=== PATIENT | female | born 1945 | race Caucasian/White ===

== ENCOUNTER 2019-11-14 14:54 | Inpatient (IN) | payer MEDICARE ==
[~2019-11-14] VITALS: Ht 154.9 cm; Wt 78.5 kg
[2019-11-14] MEDS ORDERED: ACETAMINOPHEN 325MG TABLET PO STA (15:37)
[2019-11-14 16:24] LABS: BASOPHILS % 0.6 % (0.0-2.0); HEMATOCRIT. 35.7 % (36.0-48.0); HEMOGLOBIN. 11.8 g/dL (12.0-16.0); LYMPHOCYTES % 12.9 % (20.0-50.0); MEAN CORPUSCULAR HEMOGLOBIN 29.7 pg (28.0-32.0); MEAN CORPUSCULAR VOLUME 90.1 fL (81.0-99.0); MEAN PLATELET VOLUME 8.4 fl (7.4-10.4); MONOCYTES % 6.5 % (2.0-8.0); PLATELET 272 x1000/uL (130-400); RED BLOOD CELL COUNT 3.96 mill/uL (4.2-5.4); RED CELL DISTRIBUTION WIDTH 13.9 % (11.6-14.6)
[2019-11-14 17:11] LABS: CHLORIDE 105 mEq/L (98-107)
[2019-11-14 17:14] LABS: ETHANOL BLOOD < 10 mg/dL
[2019-11-14 18:14] LABS: CLARITY URINE CLOUDY (CLEAR); COLOR URINE YELLOW (YELLOW); KETONES URINE TRACE (NEGATIVE); LEUKOCYTE ESTERASE URINE NEGATIVE (NEGATIVE); NITRITE URINE NEGATIVE (NEGATIVE); OCCULT BLOOD URINE NEGATIVE (NEGATIVE); PROTEIN URINE TRACE (NEGATIVE); SPECIFIC GRAVITY URINE 1.019 (1.005-1.030); UROBILINOGEN URINE 0.2 E.U./dL (0.2-1.0)
[2019-11-14] MEDS ORDERED: SODIUM CHLORIDE 0.9% 1,000 ML IV ONE (18:15)
[2019-11-14] MEDS ORDERED: ACETAMINOPHEN 325MG TABLET PO PRN ×2 (19:15→23:30)
[2019-11-14 22:40] VITALS: BP 179/71
[2019-11-14 22:41] VITALS: BP 179/71
[2019-11-14 23:15] VITALS: BP 120/65
[2019-11-14] MEDS ORDERED: METF-414 MT (23:20)
[2019-11-14] MEDS ORDERED: DEXTROSE 50% WATER 50ML SYRINGE IV PRN (23:30)
[2019-11-14] MEDS ORDERED: HYDRALAZINE 20MG/ML VIAL IV PRN (23:30)
[2019-11-14] MEDS ORDERED: HYDROCODONE/ACETAMINOPHEN 5/325MG TABLET PO PRN (23:30)
[2019-11-14 23:49] VITALS: BP 179/71
[2019-11-15] MEDS: BLOOD SUGAR DIAGNOSTIC STRIP TEST SCH ×5 (00:31→20:33)
[2019-11-15] MEDS ORDERED: ATOR10TA69 MT (00:34)
[2019-11-15 04:00] VITALS: BP 120/48
[2019-11-15] MEDS: INSULIN LISPRO 100 UNITS/ML SUBCUT SCH ×5 (06:24→20:39)
[2019-11-15 07:20] LABS: BASOPHILS % 0.9 % (0.0-2.0); EOSINOPHILS % 9.7 % (0.0-5.0); HEMATOCRIT. 31.7 % (36.0-48.0); HEMOGLOBIN. 10.6 g/dL (12.0-16.0); LYMPHOCYTES % 22.8 % (20.0-50.0); MEAN CORPUSCULAR HEMOGLOBIN 29.6 pg (28.0-32.0); MEAN CORPUSCULAR VOLUME 88.9 fL (81.0-99.0); MEAN PLATELET VOLUME 8.6 fl (7.4-10.4); MONOCYTES % 10.6 % (2.0-8.0); PLATELET 227 x1000/uL (130-400); RED BLOOD CELL COUNT 3.57 mill/uL (4.2-5.4); RED CELL DISTRIBUTION WIDTH 14.2 % (11.6-14.6)
[2019-11-15 08:00] VITALS: BP 140/63
[2019-11-15 12:00] VITALS: BP_SYST 107; BP_SYST 125; BP_DIAS 39; BP_DIAS 52
[2019-11-15 12:19] VITALS: BP 114/33
[2019-11-15 16:00] VITALS: BP 137/55
[2019-11-15 16:54] LABS: HEMATOCRIT 33.4 % (36.0-48.0); MEAN CORPUSCULAR HEMOGLOBIN 29.5 pg (28.0-32.0); MEAN CORPUSCULAR VOLUME 89.4 fL (81.0-99.0); PLATELET 252 x1000/uL (130-400); RED BLOOD CELL COUNT 3.73 mill/uL (4.2-5.4); RED CELL DISTRIBUTION WIDTH 14.1 % (11.6-14.6)
[2019-11-15 20:00] VITALS: BP_SYST 120; BP_SYST 124; BP_DIAS 38; BP_DIAS 52; BP_DIAS 57
[2019-11-15] MEDS ORDERED: ATORVASTATIN CALCIUM 10MG TABLET PO SCH (21:00)
[2019-11-15 23:16] LABS: PHOSPHORUS 4.7 mg/dL (2.5-4.9)
[2019-11-16] VITALS: BP 134/38
[2019-11-16 04:00] VITALS: BP 142/54
[2019-11-16] MEDS: BLOOD SUGAR DIAGNOSTIC STRIP TEST SCH ×2 (05:45→11:49)
[2019-11-16] MEDS: INSULIN LISPRO 100 UNITS/ML SUBCUT SCH ×2 (06:15→12:50)
[2019-11-16 08:00] VITALS: BP 128/38
[2019-11-16 10:49] LABS: BASOPHILS % 1.1 % (0.0-2.0); HEMATOCRIT. 31.7 % (36.0-48.0); HEMOGLOBIN. 10.6 g/dL (12.0-16.0); LYMPHOCYTES % 24.9 % (20.0-50.0); MEAN CORPUSCULAR HEMOGLOBIN 29.9 pg (28.0-32.0); MEAN CORPUSCULAR VOLUME 89.2 fL (81.0-99.0); MEAN PLATELET VOLUME 8.8 fl (7.4-10.4); MONOCYTES % 10.1 % (2.0-8.0); NEUTROPHILS % 50.9 % (40.0-76.0); PLATELET 234 x1000/uL (130-400); RED BLOOD CELL COUNT 3.55 mill/uL (4.2-5.4); RED CELL DISTRIBUTION WIDTH 13.6 % (11.6-14.6)
[2019-11-16 12:00] VITALS: BP 143/62
[2019-11-16] MEDS ORDERED: CEPH-569 MT (13:00)
[2019-11-16 15:08] VITALS: BP 143/62
[2019-11-17 08:07] LABS: MICROALBUMIN RANDOM URINE 5.7 ug/mL (Not Estab.)
[2019-11-17 14:07] LABS: ANTI-NUCLEAR ANTIBODIES DIRECT Negative (Negative)
== END 2019-11-16 16:48 | disposition home health service (06) | DRG 70 ==
LOC: ER 14:54 → ENRESERV 21:50 → 5WST 22:52
PROVIDERS: ADMIT Specialist; ATTEND Specialist
DX: G93.41 Metabolic encephalopathy (principal); N17.0 Acute kidney failure with tubular necrosis; E87.1 Hypo-osmolality and hyponatremia; N39.0 Urinary tract infection, site not specified; I95.1 Orthostatic hypotension; E11.9 Type 2 diabetes mellitus without complications; D64.9 Anemia, unspecified; R26.89 Other abnormalities of gait and mobility; M25.561 Pain in right knee; M25.562 Pain in left knee; W18.39XA Other fall on same level, initial encounter; B95.1 Streptococcus, group B, as the cause of diseases classified elsewhere; I10 Essential (primary) hypertension; E11.65 Type 2 diabetes mellitus with hyperglycemia; E78.00 Pure hypercholesterolemia, unspecified; Z79.84 Long term (current) use of oral hypoglycemic drugs; Z91.018 Allergy to other foods; Z79.899 Other long term (current) drug therapy
CPT/HCPCS: 36415; 71045; 73560; 76770; 80048; 80053; 80320; 81003; 82043; 82550; 82570; 82962; 83036; 83735; 84100; 85025; 85027; 86038; 86160; 87077; 93005; 93306; 93970; 96361; 96372; 97162; 99285; J1815; J7030; G0480